=== PATIENT | female | born 1930 | race African-American/Black ===

== ENCOUNTER 2017-05-09 16:42 | Inpatient (IN) | payer OTHER, MEDICAID ==
[~2017-05-09] VITALS: Ht 167.6 cm; Wt 62.6 kg
[~2017-05-09 16:42] MED LIST: ACETAMINOPHEN; ALBU18HF2 INH; ALEN70TA46 PO; AMOX-421; CLOP75TA33 PO; LOSA50TA20 PO; N325; NITR0.4T SL; PRED1DRO EACHEYE; RANI150T7 PO; SIMV40TA5 PO; SPIR25TA4 PO; THEO200T17 PO
[2017-05-09] MEDS ORDERED: ASPIRIN 81MG TABLET PO STA (17:59)
[2017-05-09] MEDS ORDERED: ONDANSETRON HCL 4MG/2ML VIAL IV STA (17:59)
[2017-05-09] MEDS ORDERED: METHYLPREDNISOLONE SOD SUCC 125 MG/2 ML VIAL IV STA (17:59)
[2017-05-09] MEDS ORDERED: MORPHINE SULFATE 4 MG/ML CPJ (NOT FOR IM USE) IV STA (17:59)
[2017-05-09] MEDS ORDERED: LEVOFLOXACIN 750MG PREMIX 150 ML IV ONE (18:00)
[2017-05-09] MEDS ORDERED: IPRATROPIUM/ALBUTEROL 0.5-3(2.5)MG/3ML NEB HHN ONE (18:15)
[2017-05-09] MEDS ORDERED: MAGNESIUM 2 G PREMIX 50 ML IV ONE (18:15)
[2017-05-09 18:54] LABS: BASOPHILS % 0.8 % (0.0-2.0); EOSINOPHILS % 0.5 % (0.0-5.0); HEMATOCRIT. 24.3 % (36.0-48.0); HEMOGLOBIN. 7.1 g/dL (12.0-16.0); LYMPHOCYTES % 24.3 % (20.0-50.0); MEAN CORPUSCULAR HEMOGLOBIN 21.8 pg (28.0-32.0); MEAN CORPUSCULAR VOLUME 74.4 fL (81.0-99.0); MONOCYTES % 11.3 % (2.0-8.0); NEUTROPHILS % 63.1 % (40.0-76.0); PLATELET 677 x1000/uL (130-400); RED BLOOD CELL COUNT 3.27 mill/uL (4.2-5.4); RED CELL DISTRIBUTION WIDTH 18.3 % (11.6-14.6)
[2017-05-09 18:58] LABS: CHLORIDE 108 mEq/L (98-107)
[2017-05-09 18:59] LABS: CARBON DIOXIDE 20 mEq/L (21-32); INR 1.1; PARTIAL THROMBOPLASTIN TIME 26.1 sec (23.4-31.0); PROTHROMBIN TIME 11.9 sec (9.4-11.6)
[2017-05-09 19:06] LABS: CREATINE KINASE 51 IU/L (26-192); TROPONIN I 0.02 ng/mL (0.00-0.04)
[2017-05-09] MEDS ORDERED: ALBUTEROL 6.7GM HFA INHALER INH SCH (21:45)
[2017-05-09] MEDS ORDERED: NITROGLYCERIN 0.4MG TABLET SL SL PRN (21:45)
[2017-05-09] MEDS ORDERED: ACETAMINOPHEN 325MG TABLET PO PRN (21:45)
[2017-05-09 22:38] LABS: CLARITY URINE CLEAR (CLEAR); COLOR URINE YELLOW (YELLOW); GLUCOSE URINE NEGATIVE (NEGATIVE); KETONES URINE TRACE (NEGATIVE); LEUKOCYTE ESTERASE URINE NEGATIVE (NEGATIVE); NITRITE URINE NEGATIVE (NEGATIVE); OCCULT BLOOD URINE NEGATIVE (NEGATIVE); PROTEIN URINE NEGATIVE (NEGATIVE); SPECIFIC GRAVITY URINE 1.022 (1.005-1.030); UROBILINOGEN URINE 0.2 E.U./dL (0.2-1.0)
[2017-05-10] VITALS (11 sets, daily range): BP systolic 110–134; BP diastolic 50–87
[2017-05-10] MEDS: SODIUM CHLORIDE 0.9% INJ 3ML FLUSH IVF SCH ×3 (05:40→21:21)
[2017-05-10] MEDS ORDERED: ALBUTEROL (0.083%) 2.5MG/3ML NEB HHN PRN (05:45)
[2017-05-10 07:47] LABS: BASOPHILS % 0.4 % (0.0-2.0); HEMATOCRIT. 29.2 % (36.0-48.0); HEMOGLOBIN. 9.1 g/dL (12.0-16.0); LYMPHOCYTES % 8.7 % (20.0-50.0); MEAN CORPUSCULAR HEMOGLOBIN 23.8 pg (28.0-32.0); MEAN CORPUSCULAR VOLUME 76.1 fL (81.0-99.0); MEAN PLATELET VOLUME 8.8 fl (7.4-10.4); MONOCYTES % 1.9 % (2.0-8.0); PLATELET 618 x1000/uL (130-400); RED BLOOD CELL COUNT 3.84 mill/uL (4.2-5.4)
[2017-05-10 08:09] LABS: CARBON DIOXIDE 19 mEq/L (21-32); CHLORIDE 108 mEq/L (98-107); HDL CHOLESTEROL 58 mg/dL (40-59); LDL CHOLESTEROL 83 mg/dL (5-100); TOTAL IRON BINDING CAPACITY 318 ug/dL (250-450)
[2017-05-10 08:15] LABS: TROPONIN I < 0.02 ng/mL (0.00-0.04)
[2017-05-10 08:42] LABS: FOLIC ACID (FOLATE) SERUM 18.1 ng/mL (>5.38)
[2017-05-10] MEDS: AZITHROMYCIN 500 MG TABLET PO SCH (09:17)
[2017-05-10] MEDS: LOSARTAN POTASSIUM 50 MG TABLET PO SCH (09:17)
[2017-05-10] MEDS: PREDNISOLONE ACETATE 1% OPHTH DROPS 1ML EACHEYE SCH ×4 (09:17→21:19)
[2017-05-10] MEDS: CLOPIDOGREL 75MG TABLET PO SCH (09:17)
[2017-05-10] MEDS: ATORVASTATIN CALCIUM 40MG TABLET PO SCH (21:18)
[2017-05-10] MEDS: FAMOTIDINE 20MG TABLET PO SCH (21:19)
[2017-05-11] VITALS (7 sets, daily range): BP systolic 103–123; BP diastolic 50–63
[2017-05-11] MEDS: SODIUM CHLORIDE 0.9% INJ 3ML FLUSH IVF SCH ×3 (05:29→21:24)
[2017-05-11] MEDS: PREDNISOLONE ACETATE 1% OPHTH DROPS 1ML EACHEYE SCH ×4 (08:56→21:23)
[2017-05-11] MEDS: AZITHROMYCIN 500 MG TABLET PO SCH (08:56)
[2017-05-11] MEDS: CLOPIDOGREL 75MG TABLET PO SCH (08:56)
[2017-05-11] MEDS: LOSARTAN POTASSIUM 50 MG TABLET PO SCH (08:56)
[2017-05-11 12:31] LABS: BASOPHILS % 0.7 % (0.0-2.0); EOSINOPHILS % 2.7 % (0.0-5.0); HEMATOCRIT. 31.1 % (36.0-48.0); HEMOGLOBIN. 9.2 g/dL (12.0-16.0); LYMPHOCYTES % 14.1 % (20.0-50.0); MEAN CORPUSCULAR VOLUME 80.8 fL (81.0-99.0); MEAN PLATELET VOLUME 10.2 fl (7.4-10.4); MONOCYTES % 8.9 % (2.0-8.0); NEUTROPHILS % 73.6 % (40.0-76.0); PLATELET 486 x1000/uL (130-400); RED BLOOD CELL COUNT 3.85 mill/uL (4.2-5.4); RED CELL DISTRIBUTION WIDTH 19.3 % (11.6-14.6)
[2017-05-11 12:49] LABS: CARBON DIOXIDE 22 mEq/L (21-32); CHLORIDE 110 mEq/L (98-107)
[2017-05-11] MEDS ORDERED: BISACODYL 5MG TABLET PO NR ×2 (16:00→20:00)
[2017-05-11] MEDS ORDERED: SORBITOL 70% SOLN 30ML PO NR ×2 (16:00→20:00)
[2017-05-11] MEDS: FERROUS SULFATE 325MG TABLET PO SCH (16:50)
[2017-05-11] MEDS: ATORVASTATIN CALCIUM 40MG TABLET PO SCH (21:22)
[2017-05-11] MEDS: ASCORBIC ACID 500 MG TABLET PO SCH (21:22)
[2017-05-11] MEDS: FAMOTIDINE 20MG TABLET PO SCH (21:22)
[2017-05-11] MEDS: PANTOPRAZOLE SODIUM 40 MG/VIAL IV SCH ×2 (21:23→21:24)
[2017-05-12] VITALS: BP 150/69
[2017-05-12 04:00] VITALS: BP 119/55
[2017-05-12] MEDS: SODIUM CHLORIDE 0.9% INJ 3ML FLUSH IVF SCH ×2 (05:43→14:06)
[2017-05-12] MEDS: FERROUS SULFATE 325MG TABLET PO SCH ×3 (05:43→18:26)
[2017-05-12 06:24] LABS: INR 1.1; PARTIAL THROMBOPLASTIN TIME 23.4 sec (23.4-31.0); PROTHROMBIN TIME 11.8 sec (9.4-11.6)
[2017-05-12 06:47] LABS: HEMATOCRIT 33.5 % (36.0-48.0); HEMOGLOBIN 10.5 g/dL (12.0-16.0); MEAN CORPUSCULAR HEMOGLOBIN 24.3 pg (28.0-32.0); MEAN CORPUSCULAR VOLUME 77.9 fL (81.0-99.0); PLATELET 726 x1000/uL (130-400); RED BLOOD CELL COUNT 4.31 mill/uL (4.2-5.4); RED CELL DISTRIBUTION WIDTH 19.8 % (11.6-14.6)
[2017-05-12 07:09] LABS: CARBON DIOXIDE 25 mEq/L (21-32); CHLORIDE 112 mEq/L (98-107)
[2017-05-12 08:00] VITALS: BP 125/74
[2017-05-12] MEDS: ASCORBIC ACID 500 MG TABLET PO SCH (09:00)
[2017-05-12] MEDS: LOSARTAN POTASSIUM 50 MG TABLET PO SCH (09:00)
[2017-05-12] MEDS: AZITHROMYCIN 500 MG TABLET PO SCH (09:00)
[2017-05-12] MEDS: PREDNISOLONE ACETATE 1% OPHTH DROPS 1ML EACHEYE SCH ×3 (09:18→18:26)
[2017-05-12] MEDS ORDERED: SIMETHICONE 40 MG/0.6 ML 30ML ONE ×2 (10:19→14:31)
[2017-05-12] MEDS ORDERED: FENTANYL CITRATE/PF 50MCG/ML 2ML VIAL ONE (10:20)
[2017-05-12] MEDS ORDERED: MIDAZOLAM HCL 5 MG/5 ML VIAL ONE (10:21)
[2017-05-12] MEDS ORDERED: FENTANYL CITRATE/PF 50MCG/ML 2ML VIAL IV PRN ×2 (10:38→11:51)
[2017-05-12] MEDS ORDERED: MIDAZOLAM HCL 5 MG/5 ML VIAL IV PRN ×2 (10:45→11:51)
[2017-05-12] MEDS ORDERED: SODIUM CHLORIDE 0.9% 10ML VIAL ONE (14:31)
[2017-05-12 16:00] VITALS: BP 136/64
[2017-05-12 18:50] VITALS: BP 136/64
== END 2017-05-12 20:08 | disposition home or self-care (01) | DRG 394 ==
LOC: ER 17:35 → OBSVTOIN 21:12 → INTOOBSV 21:12 → 5WST 21:12 → EDBEDREQ 21:16 → ENRESERV 23:20
PROVIDERS: ADMIT Internal Medicine; ATTEND Internal Medicine
PROC: 30233N1 Transfusion of Nonautologous Red Blood Cells into Peripheral Vein, Percutaneous Approach (ICD-10-PCS; 2017-05-09)
PROC: 0DBK8ZX Excision of Ascending Colon, Via Natural or Artificial Opening Endoscopic, Diagnostic (ICD-10-PCS; 2017-05-12)
PROC: 0DB68ZX Excision of Stomach, Via Natural or Artificial Opening Endoscopic, Diagnostic (ICD-10-PCS; principal; 2017-05-12 10:00)
DX: K63.5 Polyp of colon (principal); K92.1 Melena; J44.9 Chronic obstructive pulmonary disease, unspecified; I50.9 Heart failure, unspecified; I11.0 Hypertensive heart disease with heart failure; K57.30 Diverticulosis of large intestine without perforation or abscess without bleeding; K29.60 Other gastritis without bleeding; D50.9 Iron deficiency anemia, unspecified; I25.10 Atherosclerotic heart disease of native coronary artery without angina pectoris; K31.89 Other diseases of stomach and duodenum; Z87.891 Personal history of nicotine dependence; Z95.5 Presence of coronary angioplasty implant and graft; Z79.899 Other long term (current) drug therapy; Z88.2 Allergy status to sulfonamides; Z88.0 Allergy status to penicillin
CPT/HCPCS: 36415; 71010; 80048; 80053; 80061; 81003; 82270; 82550; 82607; 82728; 82746; 83540; 83550; 83605; 83690; 83880; 84443; 84484; 85025; 85027; 85610; 85730; 86850; 86900; 86920; 87040; 88305; 88312; 88313; 93005; 94640; 96365; 96366; 96367; 96375; 99152; 99153; 99285; A4216; C9113; J1956; J2250; J2270; J2405; J2930; J3010; J3475; J7040; J7050; J7611; J7620; P9016

== ENCOUNTER 2017-08-09 21:45 | Inpatient (IN) | payer OTHER, MEDICAID ==
[~2017-08-09] VITALS: Ht 167.6 cm; Wt 59.0 kg
[2017-08-09] MEDS ORDERED: ALBUTEROL (0.083%) 2.5MG/3ML NEB HHN STA (22:58)
[2017-08-09] MEDS ORDERED: METHYLPREDNISOLONE SOD SUCC 125 MG/2 ML VIAL IV STA (22:58)
[2017-08-09] MEDS ORDERED: IPRATROPIUM BROMIDE (0.02%) 0.5MG/2.5ML NEB HHN STA (22:58)
[2017-08-09] MEDS ORDERED: SODIUM CHLORIDE 0.9% 1,000 ML IV ONE (22:58)
[2017-08-09 23:36] LABS: CHLORIDE 112 mEq/L (98-107); HEMATOCRIT. 26.5 % (36.0-48.0); HEMOGLOBIN. 8.3 g/dL (12.0-16.0); MEAN CORPUSCULAR HEMOGLOBIN 25.8 pg (28.0-32.0); MEAN CORPUSCULAR VOLUME 82.2 fL (81.0-99.0); PLATELET 532 x1000/uL (130-400); RED BLOOD CELL COUNT 3.23 mill/uL (4.2-5.4); RED CELL DISTRIBUTION WIDTH 19.3 % (11.6-14.6)
[2017-08-09 23:39] LABS: INR 1.1; PROTHROMBIN TIME 11.2 sec (9.4-11.6)
[2017-08-09 23:45] LABS: CARBON DIOXIDE 25 mEq/L (21-32)
[2017-08-10 06:47] LABS: PLATELET ESTIMATE INCREASED
[2017-08-10 08:00] VITALS: BP 117/47
[2017-08-10 09:55] VITALS: BP 117/47
[2017-08-10] MEDS ORDERED: FERR325T6 PO (10:03)
[2017-08-10] MEDS ORDERED: SPIR25TA4 PO (10:03)
[2017-08-10] MEDS ORDERED: PRED5TAB48 PO (10:04)
[2017-08-10] MEDS ORDERED: THEO200T17 PO (10:08)
[2017-08-10] MEDS ORDERED: ASPI-1159 PO (10:08)
[2017-08-10] MEDS ORDERED: ASPIRIN 81MG EC TABLET PO SCH (11:00)
[2017-08-10] MEDS ORDERED: IPRATROPIUM/ALBUTEROL 0.5-3(2.5)MG/3ML NEB HHN PRN ×2 (11:00)
[2017-08-10] MEDS ORDERED: LOSARTAN POTASSIUM 50 MG TABLET PO SCH (11:00)
[2017-08-10] MEDS ORDERED: FAMOTIDINE 20MG TABLET PO SCH (11:00)
[2017-08-10] MEDS ORDERED: CLOPIDOGREL 75MG TABLET PO SCH (11:00)
[2017-08-10] MEDS ORDERED: SPIRONOLACTONE 25MG TABLET PO SCH (11:00)
[2017-08-10 12:00] VITALS: BP 108/51
[2017-08-10] MEDS ORDERED: IPRATROPIUM/ALBUTEROL 0.5-3(2.5)MG/3ML NEB HHN SCH ×2 (12:00)
[2017-08-10] MEDS: THEOPHYLLINE ANHYDROUS 80 MG/15 ML 120ML PO SCH ×2 (13:01→16:00)
[2017-08-10] MEDS: FERROUS SULFATE 325MG TABLET PO SCH ×2 (13:01→17:54)
[2017-08-10] MEDS ORDERED: DIPHENOXYLATE/ATROPINE 2.5/0.025MG TABLET PO SCH (13:45)
[2017-08-10] MEDS ORDERED: METRONIDAZOLE 500MG TABLET PO SCH (14:00)
[2017-08-10 16:00] VITALS: BP 132/67
[2017-08-10] MEDS ORDERED: MEDICATION NOT ON FORMULARY EA (Ferrous Sulfate 325 MG) PO SCH (17:00)
[2017-08-10] MEDS ORDERED: THEOPHYLLINE ANHYDROUS 300 MG PO SCH (17:00)
[2017-08-10 17:44] VITALS: BP 132/67
[2017-08-10] MEDS ORDERED: ATORVASTATIN CALCIUM 20MG TABLET PO SCH (21:00)
[2017-08-11] MEDS ORDERED: MEDICATION NOT ON FORMULARY EA (Simvastatin 40 MG) PO SCH (09:00)
[2017-08-11] MEDS ORDERED: MEDICATION NOT ON FORMULARY EA (Ranitidine Hcl 150 MG) PO SCH (09:00)
== END 2017-08-10 19:14 | disposition home or self-care (01) | DRG 392 ==
LOC: ER 22:15 → 7WST 08-10 03:10 → EDBEDREQ 08-10 03:15 → EDBEDREQTM 08-10 03:15 → EDBEDREQDT 08-10 03:15 → ENRESERV 08-10 07:02
PROVIDERS: ADMIT Internal Medicine; ATTEND Internal Medicine
DX: R19.7 Diarrhea, unspecified (principal); D64.9 Anemia, unspecified; K57.90 Diverticulosis of intestine, part unspecified, without perforation or abscess without bleeding; R10.9 Unspecified abdominal pain; I10 Essential (primary) hypertension; J45.909 Unspecified asthma, uncomplicated; K21.9 Gastro-esophageal reflux disease without esophagitis; Z95.5 Presence of coronary angioplasty implant and graft; Z79.899 Other long term (current) drug therapy; Z90.710 Acquired absence of both cervix and uterus; Z79.01 Long term (current) use of anticoagulants; Z88.0 Allergy status to penicillin; Z79.82 Long term (current) use of aspirin
CPT/HCPCS: 36415; 71010; 74176; 80053; 83605; 83690; 85025; 85610; 93005; 94640; 94664; 96361; 96374; 99285; J2930; J7030; J7620

== ENCOUNTER 2017-10-05 15:08 | Observation (INO) | payer OTHER, MEDICAID ==
[~2017-10-05] VITALS: Ht 167.6 cm; Wt 63.0 kg
[~2017-10-05 15:08] MED LIST changes: -ACETAMINOPHEN; -ALEN70TA46 PO; -AMOX-421; +ASPI-1159 PO; -N325; +PRED5TAB48 PO; -THEO200T17 PO
[2017-10-05] MEDS ORDERED: MORPHINE SULFATE 4 MG/ML CPJ (NOT FOR IM USE) IV STA (16:14)
[2017-10-05] MEDS ORDERED: ONDANSETRON HCL 4MG/2ML VIAL IV STA (16:14)
[2017-10-05 17:32] LABS: CHLORIDE 107 mEq/L (98-107)
[2017-10-05 17:33] LABS: TROPONIN I 0.07 ng/mL (0.00-0.04)
[2017-10-05 18:22] LABS: HEMATOCRIT. 30.1 % (36.0-48.0); HEMOGLOBIN. 8.6 g/dL (12.0-16.0); MEAN CORPUSCULAR HEMOGLOBIN 22.2 pg (28.0-32.0); MEAN CORPUSCULAR VOLUME 77.3 fL (81.0-99.0); MEAN PLATELET VOLUME 10.1 fl (7.4-10.4); PLATELET 356 x1000/uL (130-400); RED BLOOD CELL COUNT 3.89 mill/uL (4.2-5.4); RED CELL DISTRIBUTION WIDTH 20.7 % (11.6-14.6)
[2017-10-05 18:30] LABS: INR 1.1; PARTIAL THROMBOPLASTIN TIME 24.5 sec (23.4-31.0)
[2017-10-05] MEDS ORDERED: SODIUM POLYSTYRENE SULFONATE 15 G/60 ML BOT PO ONE (18:45)
[2017-10-05] MEDS ORDERED: FUROSEMIDE 20MG/2ML VIAL IVP ONE (18:45)
[2017-10-05 19:10] LABS: PLATELET ESTIMATE NORMAL
[2017-10-06] MEDS ORDERED: ONDANSETRON HCL 4MG/2ML VIAL IV STA (05:12)
[2017-10-06] MEDS ORDERED: MORPHINE SULFATE 4 MG/ML CPJ (NOT FOR IM USE) IV STA (05:12)
[2017-10-06 10:03] VITALS: BP 111/54
[2017-10-06 12:00] VITALS: BP 101/59
[2017-10-06] MEDS: AMLODIPINE 2.5MG TABLET PO SCH ×2 (13:00→21:00)
[2017-10-06] MEDS: ASPIRIN 81MG EC TABLET PO SCH (13:30)
[2017-10-06] MEDS ORDERED: LEVOFLOXACIN 500MG PREMIX 100 ML IV ONE (14:00)
[2017-10-06 15:39] LABS: HEMATOCRIT. 29.6 % (36.0-48.0); HEMOGLOBIN. 8.5 g/dL (12.0-16.0); MEAN CORPUSCULAR HEMOGLOBIN 22.4 pg (28.0-32.0); MEAN CORPUSCULAR VOLUME 77.6 fL (81.0-99.0); MEAN PLATELET VOLUME 10.7 fl (7.4-10.4); PLATELET 379 x1000/uL (130-400); RED BLOOD CELL COUNT 3.82 mill/uL (4.2-5.4); RED CELL DISTRIBUTION WIDTH 20.4 % (11.6-14.6)
[2017-10-06 15:49] LABS: CHLORIDE 103 mEq/L (98-107)
[2017-10-06 15:54] LABS: CREATINE KINASE 29 IU/L (26-192); CREATINE KINASE MB FRACTION 1.5 ng/mL (0.5-3.6); TROPONIN I 0.09 ng/mL (0.00-0.04)
[2017-10-06 16:00] VITALS: BP 122/73
[2017-10-06] MEDS ORDERED: LEVOFLOXACIN 500MG PREMIX 100 ML IV SCH (16:00)
[2017-10-06 16:05] LABS: PLATELET ESTIMATE NORMAL
[2017-10-06] MEDS ORDERED: VANCOMYCIN 1250MG in DEXTROSE 5% WATER 250ML IV NR (18:00)
[2017-10-06 20:00] VITALS: BP 107/60
[2017-10-06] MEDS: CILOSTAZOL 100MG TABLET PO SCH (21:14)
[2017-10-06] MEDS ORDERED: HYDROCODONE/ACETAMINOPHEN 5/325MG TABLET PO PRN (23:45)
[2017-10-07] VITALS: BP 115/51
[2017-10-07 04:00] VITALS: BP 109/58
[2017-10-07 06:44] LABS: HEMATOCRIT. 29.2 % (36.0-48.0); HEMOGLOBIN. 8.6 g/dL (12.0-16.0); MEAN CORPUSCULAR HEMOGLOBIN 22.2 pg (28.0-32.0); MEAN PLATELET VOLUME 10.2 fl (7.4-10.4); PLATELET 346 x1000/uL (130-400); RED BLOOD CELL COUNT 3.85 mill/uL (4.2-5.4); RED CELL DISTRIBUTION WIDTH 20.3 % (11.6-14.6)
[2017-10-07 07:51] LABS: CHLORIDE 101 mEq/L (98-107)
[2017-10-07 07:56] LABS: TROPONIN I 0.11 ng/mL (0.00-0.04)
[2017-10-07 08:30] VITALS: BP 124/44
[2017-10-07] MEDS: AMLODIPINE 2.5MG TABLET PO SCH ×2 (09:00→21:00)
[2017-10-07] MEDS: CILOSTAZOL 100MG TABLET PO SCH ×2 (09:31→21:36)
[2017-10-07] MEDS: ASPIRIN 81MG EC TABLET PO SCH (09:31)
[2017-10-07 10:16] LABS: NUCLEATED RED BLOOD CELLS 2 /100 WBC; PLATELET ESTIMATE NORMAL
[2017-10-07] MEDS ORDERED: LEVOFLOXACIN 250MG PREMIX 50 ML IV SCH (11:00)
[2017-10-07 12:00] VITALS: BP 112/72
[2017-10-07] MEDS: VANCOMYCIN 500 MG PREMIX 100 ML IV SCH (15:32)
[2017-10-07] MEDS: SODIUM CHLORIDE 0.45% 500 ML IV SCH (15:41)
[2017-10-07] MEDS ORDERED: VANCOMYCIN 1 G PREMIX 200 ML IV SCH (18:00)
[2017-10-07 20:00] VITALS: BP 113/53
[2017-10-08] VITALS: BP 99/56
[2017-10-08 04:00] VITALS: BP 97/54
[2017-10-08 08:00] VITALS: BP 124/75
[2017-10-08] MEDS: VANCOMYCIN 500 MG PREMIX 100 ML IV SCH (09:13)
[2017-10-08] MEDS: CILOSTAZOL 100MG TABLET PO SCH (09:14)
[2017-10-08] MEDS: AMLODIPINE 2.5MG TABLET PO SCH (09:14)
[2017-10-08] MEDS: ASPIRIN 81MG EC TABLET PO SCH (09:18)
[2017-10-08] MEDS: SODIUM CHLORIDE 0.45% 500 ML IV SCH ×2 (09:18→16:47)
[2017-10-08 12:00] VITALS: BP 120/80
[2017-10-08 16:00] VITALS: BP 122/80
[2017-10-08 17:17] VITALS: BP 122/68
== END 2017-10-08 18:24 | disposition home or self-care (01) ==
LOC: ER 15:08 → 5WST 10-06 03:23 → INTOOBSV 10-06 03:23 → EDBEDREQTM 10-06 03:44 → EDBEDREQ 10-06 03:44 → EDBEDREQDT 10-06 03:44 → ENRESERV 10-06 07:20
PROVIDERS: ADMIT Internal Medicine; ATTEND Internal Medicine
DX: M79.604 Pain in right leg (principal); R60.0 Localized edema; I42.0 Dilated cardiomyopathy; I27.20 Pulmonary hypertension, unspecified; I77.1 Stricture of artery; I67.9 Cerebrovascular disease, unspecified; I11.0 Hypertensive heart disease with heart failure; I50.9 Heart failure, unspecified; I73.9 Peripheral vascular disease, unspecified; I25.10 Atherosclerotic heart disease of native coronary artery without angina pectoris; I25.5 Ischemic cardiomyopathy; I25.2 Old myocardial infarction; E78.00 Pure hypercholesterolemia, unspecified; E78.5 Hyperlipidemia, unspecified; E87.5 Hyperkalemia; M31.6 Other giant cell arteritis; K21.9 Gastro-esophageal reflux disease without esophagitis; J44.9 Chronic obstructive pulmonary disease, unspecified; M81.0 Age-related osteoporosis without current pathological fracture; D50.9 Iron deficiency anemia, unspecified; N28.9 Disorder of kidney and ureter, unspecified; Z87.891 Personal history of nicotine dependence; Z98.61 Coronary angioplasty status
CPT/HCPCS: 36415; 36569; 71045; 76937; 80048; 80053; 82550; 82553; 83690; 83735; 83880; 84484; 85025; 85379; 85610; 85730; 87040; 93005; 93923; 93970; 96361; 96365; 96366; 96367; 96375; 96376; 99291; C1725; C1769; G0378; J1940; J1956; J2270; J2405; J3370; J7030; J7050; 96374; J7060